=== PATIENT | female | born 1960 | race Caucasian/White ===

== ENCOUNTER → 2021-06-26 13:06 | Outpatient (CLI) | payer OTHER, SELFPAY ==
--- NOTE | ~2021-06-26 | MM_ITS ---
EXAMINATION: MM screening [facility] BI w kailey HISTORY: Screening TECHNIQUE: Craniocaudal and mediolateral oblique 3-D tomosynthesis images were obtained and synthetic 2-D images were generated. CAD analysis was submitted and interpreted. COMPARISON: Comparison to multiple prior studies sequentially, with oldest reviewed study dated 05/2011. BREAST PARENCHYMAL COMPOSITION: There are scattered areas of fibroglandular density. FINDINGS: There is no evidence of suspicious mass, calcification, or architectural distortion to sugg est malignancy in either breast. There has been no suspicious interval change. IMPRESSION: 1. No mammographic evidence of malignancy. 2. Recommend routine screening mammography in one year. BI-RADS Category 1: Negative Reviewed, dictated and finalized at location A.
== END ==
PROVIDERS: PCP Nurse Practitioner Obstetrics & Gynecology; Visit Provider Nurse Practitioner Obstetrics & Gynecology
DX: Z12.31 Encounter for screening mammogram for malignant neoplasm of breast (principal)
CPT/HCPCS: 77063; 77067

== ENCOUNTER → 2023-05-13 10:09 | Outpatient (CLI) | payer OTHER, SELFPAY ==
--- NOTE | ~2023-05-13 | MM_ITS ---
EXAMINATION: MM screening [facility] HISTORY: Screening TECHNIQUE: Craniocaudal and mediolateral oblique 3-D tomosynthesis images were obtained and synthetic 2-D images were generated. CAD analysis was submitted and interpreted. COMPARISON: No prior mammogram is available for comparison at this institution. BREAST PARENCHYMAL COMPOSITION: Not dense: There are scattered areas of fibroglandular density. FINDINGS: There is focal asymmetry in the upper outer quadrant of the right breast posteriorly. There is possible architectural distortion with asymmetry in the upper central aspect of the left breast, middle third. IMPRESSION: 1. Bilateral asymmetries with possible architectural distortion of the left breast. 2. Additional mammographic views and possible breast ultrasound are recommended. BI-RADS Category 0: Incomplete: Needs additional imaging evaluation. Reviewed, dictated and finalized at location A. YSIS NURSE IMPRESSION: 1. Bilateral asymmetries with possible architectural distortion of the left desiree ast. 2. Additional mammographic views and possible breast ultrasound are recommended . BI-RADS Category 0: Incomplete: Needs additional imaging evaluation.
== END ==
PROVIDERS: PCP Nurse Practitioner Obstetrics & Gynecology; Visit Provider Nurse Practitioner Obstetrics & Gynecology
DX: Z12.31 Encounter for screening mammogram for malignant neoplasm of breast (principal); R92.8 Other abnormal and inconclusive findings on diagnostic imaging of breast
CPT/HCPCS: 77063; 77067

== ENCOUNTER 2023-06-17 09:43 | Outpatient (CLI) | payer OTHER, SELFPAY ==
--- NOTE | ~2023-06-17 | MMUS_ITS ---
EXAMINATION: MM diagnostic [facility] w kailey, US breast RT limited, US breast LT complete HISTORY: Bilateral mammographic asymmetries and possible left architectural distortion reported on 2023 screening mammogram TECHNIQUE: Additional 3-D tomosynthesis images of both breasts were performed and synthetic 2-D image s were generated. CAD analysis was submitted and interpreted. High resolution right subareolar and ri ght upper outer and lower outer quadrant ultrasound and complete left breast ultrasound examination w as performed. COMPARISON: Serial mammogram examinations dating back to 01/17/2015 FINDINGS: MAMMOGRAPHIC FINDINGS: There is chronic mammographic asymmetry dating back to 01/17/2015. No apparent significant new or dev eloping mammographic density or any focal reproducible mass, new architectural distortion, malignant calcification, skin thickening or retraction is noted. Occasional bilateral benign calcifications. ULTRASOUND: Right Limited breast ultrasound: 11:00 6 cm from nipple: There are 2 nearby irregular areas of hypoechogenicity, measuring approximate ly 3 mm and 6 mm, with posterior shadowing. The larger lesion appears to have calcification. 11:00 subareolar area: 4.4 x 4.6 mm mildly irregular hypoechoic incompletely circumscribed lesion wit hout internal vascularity or posterior features. Due to the mildly irregular margins, ultrasound-guid ed biopsy is recommended. Subareolar: Approximately 2 x 4 mm circumscribed sonolucent lesion without internal vascularity or po sterior shadowing, probably benign Left complete breast ultrasound: No suspicious mass or shadowing of the left breast is detected. IMPRESSION: 1. 2 nearby irregular areas of hypoechogenicity with posterior shadowing in the right breast at 11:00 6 cm from nipple 2. 4.6 mm mildly irregular hypoechoic incompletely circumscribed lesion of right breast at 11:00 suba reolar area Ultrasound-guided biopsy of these 3 areas is recommended BI-RADS category 4, suspicious findings. Dr. Serrano telephoned the report and ultrasound guided biopsy recommendations on 06/17/2023 at 1115 hour s to Emmie King Reviewed, dictated and finalized at location A. IMPRESSION: 1. 2 nearby irregular areas of hypoechogenicity with posterior shadowing in the right breast at 11:00 6 cm from nipple 2. 4.6 mm mildly irregular hypoechoic incompletely circumscribed lesion of righ t breast at 11:00 subareolar area Ultrasound-guided biopsy of these 3 areas is recommended BI-RADS category 4, suspicious findings. Dr. Serrano telephoned the report and ultrasound guided biopsy recommendations on 06/17/2023 at 1115 hours to Emmie King IMPRESSION: 1. 2 nearby irregular areas of hypoechogenicity with posterior shadowing in the right breast at 11:00 6 cm from nipple 2. 4.6 mm mildly irregular hypoechoic incompletely circumscribed lesion of righ t breast at 11:00 subareolar area Ultrasound-guided biopsy of these 3 areas is recommended BI-RADS category [address], [address] Serrano telephoned the report and ultrasound guided biopsy recommendations on 06/17/2023 at 1115 hours to Emmie King
== END 2023-06-17 09:44 ==
LOC: MICIMG 09:44
PROVIDERS: PCP Nurse Practitioner Obstetrics & Gynecology; Visit Provider Nurse Practitioner Obstetrics & Gynecology
DX: R92.8 Other abnormal and inconclusive findings on diagnostic imaging of breast (principal)
CPT/HCPCS: 76641; 76642; 77062; 77066; G0279